=== PATIENT | female | born 1955 | race Caucasian/White ===

== ENCOUNTER 2017-01-21 11:35 | Outpatient (CLI) | payer BC | END 2017-01-21 11:36 | disposition home or self-care (01) | DX: E78.2 Mixed hyperlipidemia (principal); Z72.89 Other problems related to lifestyle; N95.1 Menopausal and female climacteric states ==

== ENCOUNTER 2017-05-19 09:40 | Outpatient (CLI) | payer BC ==
[2017-05-20 10:32] LABS: PROGESTERONE 12.8 ng/mL (())
[2017-05-23 08:01] LABS: FREE TESTOSTERONE 2.2 pg/mL (0.1-6.4)
== END 2017-05-19 09:41 | disposition home or self-care (01) ==
LOC: LAB.F 09:40
PROVIDERS: ATTEND Obstetrics & Gynecology Gynecology
DX: N95.1 Menopausal and female climacteric states (principal)
CPT/HCPCS: 36415; 82670; 84144; 84403

== ENCOUNTER 2017-10-05 09:42 | Outpatient (CLI) | payer BC ==
[2017-10-05 19:17] LABS: CHOL/HDL RATIO 4.3 (<4.4); CHOLESTEROL 240 mg/dL; HDL CHOLESTEROL 56 mg/dL; LDL/HDL RATIO 2.9 (<4.4); TRIGLYCERIDES 102 mg/dL; VLDL CHOLESTEROL 20 mg/dL
[2017-10-06 12:46] LABS: PROGESTERONE 13.6 ng/mL
[2017-10-10 19:26] LABS: TEST RESULT REPORT
== END 2017-10-05 09:43 | disposition home or self-care (01) ==
LOC: LAB.F 09:42
PROVIDERS: ATTEND Obstetrics & Gynecology Gynecology
DX: E78.2 Mixed hyperlipidemia (principal); N95.9 Unspecified menopausal and perimenopausal disorder
CPT/HCPCS: 36415; 80061; 81599; 82627; 82670; 84144; 84270; 84402; 84403

== ENCOUNTER 2018-04-07 07:50 | Outpatient (CLI) | payer BC ==
[2018-04-08 11:07] LABS: PROGESTERONE 31.3 ng/mL
== END 2018-04-07 07:51 | disposition home or self-care (01) ==
LOC: LAB.F 07:50
PROVIDERS: ATTEND Obstetrics & Gynecology Gynecology
DX: N95.9 Unspecified menopausal and perimenopausal disorder (principal)
CPT/HCPCS: 36415; 82627; 82670; 84144

== ENCOUNTER 2018-09-09 13:38 | Emergency (ER) | payer BC ==
--- NOTE | 2018-09-09 14:51 | ED Physician Documentation ---
History of Present Illness - Stated complaint Stated Complaint: HIGH BP - Chief complaint Chief Complaint: General - History obtained from History obtained from: Patient - History of Present Illness Timing: Last night Pain level max: 0 Pain level now: 0 Improved by: dizziness is better with rest Worsened by: worse with standing quickly - Additonal information Additional information: 63 yo F states she felt dizzy and off balance when she woke up last night to use the restroom. States she took her blood pressure and noted that it was high. Does not usually check her blood pressure. She states she had a massage this morning, her blood pressure decreased but then went up again. She states that she still feels slightly dizzy and off balance, though not as severe as before. She denies any chest pain, shortness of breath, visual changes. Review of Systems Constitutional: denies: Fever, Chills Eyes: denies: Decreased vision, Photophobia Ears: denies: Ear pain Nose: denies: Rhinorrhea / runny nose, Congestion Cardiac: denies: Chest pain / pressure, Palpitations Respiratory: denies: Dyspnea, Cough, Wheezing GI: denies: Abdominal Pain, Vomiting, Diarrhea : denies: Dysuria Skin: denies: Rash Musculoskeletal: denies: Neck pain, Back pain Neurologic: denies: Focal weakness, Numbness, Confused, Headache PD PAST MEDICAL HISTORY - Past Medical History Past Medical History: Yes Endocrine/Autoimmune: HyPOthyroidism - Present Medications Home Medications: Ambulatory Orders Medication Instructions Recorded Confirmed Cacium 09/09/18 Coq10 09/09/18 Estradiol [Estrogel] 50 gm TD 09/09/18 Levothyroxine [Synthroid] 112 mcg PO QDAC 09/09/18 09/09/18 Lisinopril 5 mg PO DAILY #30 tablet 09/09/18 Multi Thymus 09/09/18 Multivitamin [Multiple Vitamins] 1 each PO 09/09/18 Niacinamide [Endur-Amide] 500 mg PO 09/09/18 Pantothenic Acid 09/09/18 Prasterone (Dhea) [Dhea] 15 mg PO 09/09/18 Progesterone,Micronized 200 mg PO 09/09/18 [Progesterone] Vitamin K2 [Menauinone-7] 09/09/18 - Allergies Allergies/Adverse Reactions: Allergies Allergy/AdvReac Type Severity Reaction Status Date / Time No Known Drug Allergies Allergy Verified 09/09/18 13:47 PD ED PE NORMAL - Vitals Vital signs reviewed: Yes - General General: Alert and oriented X 3, No acute distress, Well developed/nourished - HEENT HEENT: PERRL, Ears normal, Moist mucous membranes, Pharynx benign - Neck Neck: Supple, no meningeal sign - Cardiac Cardiac: RRR, Strong equal pulses - Respiratory Respiratory: No respiratory distress, Clear bilaterally - Abdomen Abdomen: Soft, Non tender, Non distended - Derm Derm: Warm and dry - Extremities Extremities: No edema - Neuro Neuro: Alert and oriented X 3, 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 normal cerebellar tests.) Eye Opening: Spontaneous Motor: Obeys Commands Verbal: Oriented GCS Score: 15 - Psych Psych: Normal mood, Normal affect Results - Vitals Vitals: Vital Signs - 24 hr 09/09/18 09/09/18 13:42 15:05 Temperature 36.4 C L Heart Rate 58 L 65 Respiratory 18 16 Rate Blood Pressure 160/72 H 169/81 H O2 Saturation 100 99 Oxygen O2 Source Room air - EKG (time done) 1355 Rate: Rate (enter#) (57) Rhythm: NSR [place]: Normal Intervals: Normal [place] QRS: Normal Ischemia: Normal ST segments - Labs Labs: Laboratory Tests 09/09/18 09/09/18 15:00 15:00 WBC 7.1 RBC 4.30 Hgb 13.2 Hct 38.1 MCV 88.7 MCH 30.6 MCHC 34.5 RDW 13.9 Plt Count 256 MPV 7.4 L Neut # (Auto) 4.2 Lymph # (Auto) 2.0 [place] # (Auto) 0.5 Eos # (Auto) 0.3 Baso # (Auto) 0.0 Absolute Nucleated RBC 0.00 Nucleated RBC % 0.1 Sodium 137 Potassium 3.9 Chloride 104 Carbon Dioxide 28 Anion Gap 5.0 L BUN 12 Creatinine 0.8 Estimated GFR (MDRD) 72 L Glucose 88 Calcium 9.3 Total Bilirubin 0.8 AST 18 ALT 21 Alkaline Phosphatase 60 Total Protein 7.4 Albumin 4.1 Globulin 3.3 Albumin/Globulin Ratio 1.2 Lipase 23 PD MEDICAL DECISION MAKING - ED course Complexity details: reviewed results, re-evaluated patient, considered differe ntial, d/w patient ED course: Patient is a 63-year-old female with hypertension today. Also had an episode of what sounds like vertigo last night. This appears to be resolved now. No acute laboratory findings. EKG without acute ischemic findings. No chest pain, shortness of breath or palpitations. We will start her on a low-dose of lisinopril and have her follow-up with her doctor for further evaluation and care. Patient counseled regarding signs and symptoms for which I believe and urgent re-evaluation would be necessary. Patient with good understanding of and agreement to plan and is comfortable going home at this time This document was made in part using voice recognition software. While efforts are made to proofread this document, sound alike and grammatical errors may occur. Departure - Departure Disposition: 01 Home, Self Care Clinical Impression: Hypertension Qualifiers: Hypertension type: unspecified Qualified Code(s): I10 - Essential (primary) hypertension Condition: Good Instructions: ED Hypertension New Begin Tx Follow-Up: Daria Sanders PA-C [Primary Care Provider] - Within 1 week Prescriptions: Lisinopril 5 mg PO DAILY #30 tablet Comments: Your labs are normal today. Follow-up with your doctor for further care. Return if you worsen. Discharge Date/Time: 09/09/18 16:03 NIHSS - Time Time: 14:35 - Level of Consciousness Level of consciousness: (0) Alert, Keenly responsive LOC Questions: (0) Answers both Q's correct LOC Commands: (0) Performs both correctly - Gaze Best Gaze: (0) Normal - Visual Visual: (0) No loss - Facial Palsy Facial Palsy: (0) Normal, symmetrical movement - Motor Arms (both separate) Motor Arm (right): (0) No drift Motor Arm (left): (0) No drift - Motor Legs (both separate) Motor Leg (right): (0) No drift Motor Leg (left): (0) No drift - Limb Ataxia Limb Ataxia: (0) Absent - Sensory Sensory: (0) Normal - Best Language Best Language: (0) No aphasia - Dysarthria Dysarthria: (0) Normal - Extinction and Inattention (formally neg Extinction and inattention: (0) No abnormality - Total Score/Results Total Score/Result: 0
[2018-09-09 15:06] VITALS: BP 169/81
[2018-09-09 15:06] LABS: BASOPHILS % (AUTO) 0.5 %; EOSINOPHILS # (AUTO) 0.3 10^3/uL (0.0-0.7); EOSINOPHILS % (AUTO) 3.9 %; HGB - HEMOGLOBIN 13.2 g/dL (12.0-16.0); LYMPHOCYTES % (AUTO) 28.3 %; MEAN CORPUSCULAR HEMOGLOBIN 30.6 pg (27.0-31.0); MEAN CORPUSCULAR HGB CONC 34.5 g/dL (32.0-36.0); MEAN CORPUSCULAR VOLUME 88.7 fL (81.0-99.0); MEAN PLATELET VOLUME 7.4 fL (7.9-10.8); MONOCYTES # (AUTO) 0.5 10^3/uL (0.0-1.0); MONOCYTES % (AUTO) 7.2 %; NEUTROPHILS # (AUTO) 4.2 10^3/uL (1.5-6.6); NEUTROPHILS % (AUTO) 60.1 %; PLT - PLATELET COUNT 256 10^3/uL (130-450); RED CELL DISTRIBUTION WIDTH 13.9 % (12.0-15.0); WHITE BLOOD COUNT 7.1 x10^3/uL (4.8-10.8)
[2018-09-09 15:20] LABS: ALBUMIN 4.1 g/dL (3.2-5.5); ALBUMIN/GLOBULIN RATIO 1.2 (1.0-2.2); BILIRUBIN,TOTAL 0.8 mg/dL (0.2-1.0); CALCIUM 9.3 mg/dL (8.5-10.3); CREATININE 0.8 mg/dL (0.4-1.0); TOTAL PROTEIN 7.4 g/dL (6.7-8.2)
== END 2018-09-09 16:03 | disposition home or self-care (01) ==
LOC: ED 13:38
DX: I10 Essential (primary) hypertension (principal)
CPT/HCPCS: 36415; 80053; 83690; 85025; 93005; 99283

== ENCOUNTER 2018-10-21 10:22 | Outpatient (CLI) | payer BC ==
[2018-10-21 10:45] LABS: BILIRUBIN,URINE NEGATIVE (NEGATIVE); GLUCOSE, URINE (UA) NEGATIVE (NEGATIVE); KETONES,URINE (UA) NEGATIVE (NEGATIVE); LEUKOCYTE ESTERASE, URINE NEGATIVE (NEGATIVE); NITRITE,URINE NEGATIVE (NEGATIVE); OCCULT BLOOD,URINE NEGATIVE (NEGATIVE); PH,URINE 7.5 PH (5.0-7.5); PROTEIN,URINE NEGATIVE (NEGATIVE); UROBILINOGEN,URINE 0.2 (NORMAL) E.U./dL (NORMAL)
[2018-10-21 10:46] LABS: CLARITY,URINE CLEAR (CLEAR)
[2018-10-21 10:59] LABS: BASOPHILS % (AUTO) 0.3 %; EOSINOPHILS # (AUTO) 0.3 10^3/uL (0.0-0.7); EOSINOPHILS % (AUTO) 3.8 %; HGB - HEMOGLOBIN 13.7 g/dL (12.0-16.0); MEAN CORPUSCULAR HEMOGLOBIN 30.4 pg (27.0-31.0); MEAN CORPUSCULAR HGB CONC 34.3 g/dL (32.0-36.0); MEAN CORPUSCULAR VOLUME 88.6 fL (81.0-99.0); MEAN PLATELET VOLUME 7.5 fL (7.9-10.8); MONOCYTES # (AUTO) 0.4 10^3/uL (0.0-1.0); MONOCYTES % (AUTO) 6.2 %; NEUTROPHILS # (AUTO) 3.9 10^3/uL (1.5-6.6); NEUTROPHILS % (AUTO) 59.7 %; PLT - PLATELET COUNT 272 10^3/uL (130-450); RED BLOOD COUNT 4.51 10^6/uL (4.20-5.40); RED CELL DISTRIBUTION WIDTH 13.4 % (12.0-15.0); WHITE BLOOD COUNT 6.5 x10^3/uL (4.8-10.8)
[2018-10-21 11:33] LABS: ALBUMIN 4.3 g/dL (3.2-5.5); ALBUMIN/GLOBULIN RATIO 1.2 (1.0-2.2); ALKALINE PHOSPHATASE 57 IU/L (42-121); ALT ALANINE AMINOTRANSFERASE 18 IU/L (10-60); AST ASPARTATE AMINOTRANSFERASE 18 IU/L (10-42); BILIRUBIN,TOTAL 0.4 mg/dL (0.2-1.0); BUN - BLOOD UREA NITROGEN 16 mg/dL (6-20); CALCIUM 9.1 mg/dL (8.5-10.3); CARBON DIOXIDE - CO2 27 mmol/L (21-32); CHLORIDE 102 mmol/L (101-111); CHOL/HDL RATIO 5.2 (<4.4); CHOLESTEROL 265 mg/dL; CREATININE 0.7 mg/dL (0.4-1.0); CRP HIGH SENSITIVITY 4.2 mg/L; GFR - MDRD 85 (>89); GLUCOSE 98 mg/dL (70-100); HDL CHOLESTEROL 51 mg/dL; LDL CHOLESTEROL,CALCULATED 194 mg/dL; LDL/HDL RATIO 3.8 (<4.4); SODIUM 137 mmol/L (135-145); TOTAL PROTEIN 7.9 g/dL (6.7-8.2); VLDL CHOLESTEROL 20 mg/dL
[2018-10-21 19:49] LABS: FREE T4 (FREE THYROXINE) 1.12 ng/dL (0.58-1.64); THYROID STIMULATING HORMONE 0.1 uIU/mL (0.34-5.60)
[2018-10-22 07:58] LABS: HB2 TOTAL 14.2 g/dL; HEMOGLOBIN A1C 0.54 g/dL; HEMOGLOBIN A1C % 5.6 % (4.6-6.2)
== END 2018-10-21 10:23 | disposition home or self-care (01) ==
LOC: LAB 10:22
PROVIDERS: ATTEND Obstetrics & Gynecology Gynecology
DX: N95.9 Unspecified menopausal and perimenopausal disorder (principal)
CPT/HCPCS: 36415; 80053; 80061; 81003; 81599; 82306; 82627; 82670; 83036; 83721; 84144; 84402; 84403; 84439; 84443; 84481; 85025; 86141; 87086

== ENCOUNTER 2019-04-18 12:08 | Outpatient (CLI) | payer BC ==
[2019-04-18 13:42] LABS: THYROID STIMULATING HORMONE 0.12 uIU/mL (0.34-5.60)
[2019-04-18 13:44] LABS: FREE T4 (FREE THYROXINE) 0.9 ng/dL (0.58-1.64)
[2019-04-19 07:37] LABS: PROGESTERONE 3.2 ng/mL
== END 2019-04-18 12:09 | disposition home or self-care (01) ==
LOC: LAB 12:08
PROVIDERS: ATTEND Obstetrics & Gynecology Gynecology
DX: N95.1 Menopausal and female climacteric states (principal); E03.9 Hypothyroidism, unspecified
CPT/HCPCS: 36415; 81599; 82627; 82670; 84144; 84402; 84403; 84439; 84443; 84481

== ENCOUNTER 2019-09-03 10:01 | Emergency (ER) | payer BC ==
--- NOTE | 2019-09-03 10:57 | ED Physician Documentation ---
PD HPI FOCAL NEURO - Stated complaint Stated Complaint: VISION CHANGES - Chief complaint Chief Complaint: Neuro - History obtained from History obtained from: Patient - History of Present Illness Timing - onset: Today Timing - duration: Seconds (5) Timing - details: Abrupt onset, Now resolved Severity of deficit: Moderate Weakness: No: Face, Arm, Hand, Leg, Foot, Right, Left Numbness: No: Face, Arm, Hand, Leg, Foot, Right, Left Associated symptoms: No: Headache, Nausea / vomiting, Seizure, Syncope, Fall, Head injury, Chest pain, Neck pain, Back pain, Fever Contributing factors: negative: Anticoagulated, Vascular dz, Atrial fibrillation, Prosthetic heart valve Baseline status: positive: A&OX3, ambulatory, indep Similar symptoms before: Has not had sx before Recently seen: Not recently seen - Additional information Additional information: Previously well 64-year-old female with a history of hypertension was driving her car down to the [place] today when she experienced acute diplopia. She states the episode lasted about 5 seconds and she was able to pull off of the road and had resolution of symptoms when she opened her eyes. She has not had return of symptoms she has not had any other specific symptoms or any other lateralizing findings. Patient states that she has recently been on a car trip down to [place] and [facility] and she got back about 5 days ago she states that she did have a slight sinus congestion associated with that or a cold she feels that she is getting over that. She is not otherwise feeling ill when she feels that she is gotten adequate sleep denies any alcohol use denies any drug use or change to her medications. She is concerned about the possibility of a stroke. Review of Systems Constitutional: denies: Fever Eyes: reports: Other (transient diplopia). denies: Decreased vision Ears: denies: Ear pain Nose: reports: Congestion, Sinus pressure / pain Throat: denies: Oral lesions / sores, Sore throat Cardiac: denies: Chest pain / pressure, Palpitations Respiratory: denies: Dyspnea, Cough GI: denies: Nausea, Vomiting : denies: Dysuria, Frequency PD PAST MEDICAL HISTORY - Past Medical History Endocrine/Autoimmune: HyPOthyroidism - Past Surgical History Past Surgical History: Yes - Present Medications Home Medications: Ambulatory Orders Medication Instructions Recorded Confirmed Cacium 09/09/18 Coq10 09/09/18 Estradiol [Estrogel] 50 gm TD 09/09/18 Levothyroxine [Synthroid] 112 mcg PO QDAC 09/09/18 09/09/18 Lisinopril 5 mg PO DAILY #30 tablet 09/09/18 Multi Thymus 09/09/18 Multivitamin [Multiple Vitamins] 1 each PO 09/09/18 Niacinamide [Endur-Amide] 500 mg PO 09/09/18 Pantothenic Acid 09/09/18 Prasterone (Dhea) [Dhea] 15 mg PO 09/09/18 Progesterone, Micronized 200 mg PO 09/09/18 [Progesterone] Vitamin K2 [Menauinone-7] 09/09/18 - Allergies Allergies/Adverse Reactions: Allergies Allergy/AdvReac Type Severity Reaction Status Date / Time No Known Drug Allergies Allergy Verified 09/03/19 10:06 - Social History Does the pt smoke?: No Smoking Status: Never smoker Does the pt drink ETOH?: No Does the pt have substance abuse?: No - Immunizations Immunizations are current?: Yes PD ED PE NORMAL - Vitals Vital signs reviewed: Yes (hypertensive mild ) - General General: Alert and oriented X 3, No acute distress, Well developed/nourished - HEENT HEENT: Atraumatic, PERRL, EOMI, Ears normal, Moist mucous membranes, Pharynx benign, Dentition benign - Neck Neck: Supple, no meningeal sign, No bony TTP - Cardiac Cardiac: RRR, No murmur - Respiratory Respiratory: No respiratory distress, Clear bilaterally - Abdomen Abdomen: Soft, Non tender - Back Back: No CVA TTP, No spinal TTP - Derm Derm: Normal color, Warm and dry, No rash NIHSS - Time Time: 10:50 - Level of Consciousness Level of consciousness: (0) Alert, Keenly responsive LOC Questions: (0) Answers both Q's correct LOC Commands: (0) Performs both correctly - Gaze Best Gaze: (0) Normal - Visual Visual: (0) No loss - Facial Palsy Facial Palsy: (0) Normal, symmetrical movement - Motor Arms (both separate) Motor Arm (right): (0) No drift Motor Arm (left): (0) No drift - Motor Legs (both separate) Motor Leg (right): (0) No drift Motor Leg (left): (0) No drift - Limb Ataxia Limb Ataxia: (0) Absent - Sensory Sensory: (0) Normal - Best Language Best Language: (0) No aphasia - Dysarthria Dysarthria: (0) Normal - Extinction and Inattention (formally neg Extinction and inattention: (0) No abnormality - Total Score/Results Total Score/Result: 0 Results - Vitals Vitals: Vital Signs - 24 hr 09/03/19 09/03/19 09/03/19 10:05 11:14 12:40 Temperature 36.7 C Heart Rate 61 58 L 59 L Respiratory 20 18 18 Rate Blood Pressure 148/58 H 145/73 H 142/84 H O2 Saturation 100 99 98 Oxygen O2 Source Room air - EKG (time done) 1107 Rate: Rate (enter#) (54) Rhythm: NSR QRS: Low voltage Compare to prior EKG: Unchanged from prior EKG (SPT 09-09-2018) Computer interpretation: Agree with computer - Labs Labs: Laboratory Tests 09/03/19 09/03/19 09/03/19 11:03 11:11 11:11 WBC 6.4 RBC 4.59 Hgb 13.4 Hct 41.9 MCV 91.3 MCH 29.2 MCHC 32.0 RDW 13.2 Plt Count 267 MPV 9.3 Neut # (Auto) 4.1 Lymph # (Auto) 1.8 [place] # (Auto) 0.4 Eos # (Auto) 0.1 Baso # (Auto) 0.0 Absolute Nucleated RBC 0.00 Nucleated RBC % 0.0 Sodium 139 Potassium 3.7 Chloride 102 Carbon Dioxide 28 Anion Gap 9.0 BUN 12 Creatinine 0.8 Estimated GFR (MDRD) 72 L Glucose 97 Calcium 9.3 Total Bilirubin 0.6 AST 20 ALT 25 Alkaline Phosphatase 58 Total Protein 7.7 Albumin 4.3 Globulin 3.4 Albumin/Globulin Ratio 1.3 Lipase 30 Urine Color LT. YELLOW Urine Clarity CLEAR Urine pH 7.5 Ur Specific [place] 1.010 Urine Protein NEGATIVE Urine Glucose (UA) NEGATIVE Urine Ketones NEGATIVE Urine Occult Blood NEGATIVE Urine Nitrite NEGATIVE Urine Bilirubin NEGATIVE Urine Urobilinogen 0.2 (NORMAL) Ur Leukocyte Esterase NEGATIVE Ur Microscopic Review NOT INDICATED Urine Culture Comments NOT INDICATED - Rads (name of study) Head CT Radiology: Prelim report reviewed (Impression: Normal head CT.), EMP read indepedently, See rad report Procedures - IVC sono (time) 1045 Bedside IVC sono: IVC measures (cm) (1.52), Euvolemia PD MEDICAL DECISION MAKING - ED course Complexity details: reviewed old records, reviewed results, re-evaluated patient, considered differential, d/w patient ED course: transient diplopia 5 seconds. No recurrence. I sought to find a history of exhaustion, but the patient really did not feel this was the case and a work up for TIA was entirely normal. I have asked the patient to follow up with her primary. Departure - Departure Disposition: 01 Home, Self Care Clinical Impression: Diplopia Condition: Stable Instructions: ED Double Vision Follow-Up: Aristeo Velasco MD [Provider Admit Priv/Credential] - Nav Morejon MD [Provider Admit Priv/Credential] - Discharge Date/Time: 09/03/19 12:42
[2019-09-03 11:17] LABS: BASOPHILS % (AUTO) 0.2 %; EOSINOPHILS # (AUTO) 0.1 10^3/uL (0.0-0.7); EOSINOPHILS % (AUTO) 2.2 %; HGB - HEMOGLOBIN 13.4 g/dL (12.0-16.0); LYMPHOCYTES # (AUTO) 1.8 10^3/uL (1.5-3.5); LYMPHOCYTES % (AUTO) 27.6 %; MEAN CORPUSCULAR HEMOGLOBIN 29.2 pg (27.0-31.0); MEAN CORPUSCULAR VOLUME 91.3 fL (81.0-99.0); MEAN PLATELET VOLUME 9.3 fL (7.9-10.8); MONOCYTES # (AUTO) 0.4 10^3/uL (0.0-1.0); MONOCYTES % (AUTO) 5.8 %; NEUTROPHILS # (AUTO) 4.1 10^3/uL (1.5-6.6); NEUTROPHILS % (AUTO) 63.9 %; PLT - PLATELET COUNT 267 10^3/uL (130-450); RED BLOOD COUNT 4.59 10^6/uL (4.20-5.40); RED CELL DISTRIBUTION WIDTH 13.2 % (12.0-15.0); WHITE BLOOD COUNT 6.4 x10^3/uL (4.8-10.8)
[2019-09-03 11:28] LABS: BILIRUBIN,URINE NEGATIVE (NEGATIVE); GLUCOSE, URINE (UA) NEGATIVE (NEGATIVE); KETONES,URINE (UA) NEGATIVE (NEGATIVE); LEUKOCYTE ESTERASE, URINE NEGATIVE (NEGATIVE); NITRITE,URINE NEGATIVE (NEGATIVE); OCCULT BLOOD,URINE NEGATIVE (NEGATIVE); PH,URINE 7.5 PH (5.0-7.5); PROTEIN,URINE NEGATIVE (NEGATIVE); UROBILINOGEN,URINE 0.2 (NORMAL) E.U./dL (NORMAL)
[2019-09-03 11:29] LABS: ALBUMIN 4.3 g/dL (3.2-5.5); ALBUMIN/GLOBULIN RATIO 1.3 (1.0-2.2); BILIRUBIN,TOTAL 0.6 mg/dL (0.2-1.0); CALCIUM 9.3 mg/dL (8.5-10.3); CREATININE 0.8 mg/dL (0.4-1.0); TOTAL PROTEIN 7.7 g/dL (6.7-8.2)
[2019-09-03 11:29] LABS: CLARITY,URINE CLEAR (CLEAR)
--- NOTE | 2019-09-03 12:01 | CT Report ---
Reason: transient double vision Procedure Date: 09/03/2019 Accession Number: [id number] / [id number] Procedure: CT - HEAD WO CPT Code: Final Report FULL RESULT: EXAM: CT HEAD EXAM DATE: 09/03/2019 11:36 AM. CLINICAL HISTORY: Transient double vision. COMPARISON: None. TECHNIQUE: Multiaxial CT images were obtained from the foramen magnum to the vertex. Reformats: Sagittal and coronal. IV contrast: None. In accordance with CT protocol optimization, one or more of the following dose reduction techniques were utilized for this exam: automated exposure control, adjustment of mA and/or KV based on patient size, or use of iterative reconstructive technique. FINDINGS: Parenchyma: No intraparenchymal hemorrhage. No evidence of mass, midline shift, or CT findings of infarction. Cornejo-white differentiation is distinct. Extraaxial Spaces: Normal for age. No subdural or epidural collections identified. Cavum septum pellucidum and cavum vergae. Ventricles: Normal in size and position. Sinuses and Orbits: Imaged paranasal sinuses, orbits, and mastoids show no significant abnormality. Bones: No evidence of fracture or calvarial defect. Other: None. IMPRESSION: Normal head CT. RADIA
[2019-09-03 12:41] VITALS: BP 142/84
== END 2019-09-03 12:42 | disposition home or self-care (01) ==
LOC: ED 10:01
DX: H53.2 Diplopia (principal); E03.9 Hypothyroidism, unspecified
CPT/HCPCS: 36415; 70450; 80053; 81001; 81003; 83690; 85025; 87086; 93005; 99284

== ENCOUNTER 2019-09-27 11:16 | Outpatient (CLI) | payer BC | END 2019-09-27 11:17 | disposition home or self-care (01) | LOC: LAB.S 11:16 | PROVIDERS: ATTEND Obstetrics & Gynecology Gynecology | DX: Z00.00 Encounter for general adult medical examination without abnormal findings (principal); E03.8 Other specified hypothyroidism; N95.1 Menopausal and female climacteric states | CPT/HCPCS: 36415; 84439; 84443; 84481 ==

== ENCOUNTER 2019-09-28 08:31 | Outpatient (CLI) | payer BC ==
[2019-09-28 17:13] LABS: BASOPHILS % (AUTO) 0.5 %; EOSINOPHILS # (AUTO) 0.2 10^3/uL (0.0-0.7); HGB - HEMOGLOBIN 13.6 g/dL (12.0-16.0); LYMPHOCYTES % (AUTO) 30.4 %; MEAN CORPUSCULAR HGB CONC 32.8 g/dL (32.0-36.0); MEAN CORPUSCULAR VOLUME 91.4 fL (81.0-99.0); MEAN PLATELET VOLUME 9.8 fL (7.9-10.8); MONOCYTES # (AUTO) 0.4 10^3/uL (0.0-1.0); MONOCYTES % (AUTO) 6.3 %; NEUTROPHILS % (AUTO) 59.3 %; PLT - PLATELET COUNT 273 10^3/uL (130-450); RED BLOOD COUNT 4.54 10^6/uL (4.20-5.40); RED CELL DISTRIBUTION WIDTH 13.3 % (12.0-15.0); WHITE BLOOD COUNT 6.7 x10^3/uL (4.8-10.8)
[2019-09-28 17:33] LABS: BILIRUBIN,URINE NEGATIVE (NEGATIVE); GLUCOSE, URINE (UA) NEGATIVE (NEGATIVE); KETONES,URINE (UA) NEGATIVE (NEGATIVE); LEUKOCYTE ESTERASE, URINE NEGATIVE (NEGATIVE); NITRITE,URINE NEGATIVE (NEGATIVE); OCCULT BLOOD,URINE NEGATIVE (NEGATIVE); PROTEIN,URINE NEGATIVE (NEGATIVE); UROBILINOGEN,URINE 0.2 (NORMAL) E.U./dL (NORMAL)
[2019-09-28 17:37] LABS: HB2 TOTAL 13.5 g/dL; HEMOGLOBIN A1C 0.53 g/dL; HEMOGLOBIN A1C % 5.7 % (4.6-6.2)
[2019-09-28 17:40] LABS: ALBUMIN 4.4 g/dL (3.2-5.5); ALBUMIN/GLOBULIN RATIO 1.4 (1.0-2.2); ALKALINE PHOSPHATASE 57 IU/L (42-121); ALT ALANINE AMINOTRANSFERASE 25 IU/L (10-60); AST ASPARTATE AMINOTRANSFERASE 22 IU/L (10-42); BILIRUBIN,TOTAL 0.2 mg/dL (0.2-1.0); BUN - BLOOD UREA NITROGEN 15 mg/dL (6-20); CALCIUM 9.2 mg/dL (8.5-10.3); CARBON DIOXIDE - CO2 27 mmol/L (21-32); CHLORIDE 103 mmol/L (101-111); CHOL/HDL RATIO 4.2 (<4.4); CHOLESTEROL 267 mg/dL; CREATININE 0.8 mg/dL (0.4-1.0); GFR - MDRD 72 (>89); GLUCOSE 108 mg/dL (70-100); HDL CHOLESTEROL 64 mg/dL; LDL CHOLESTEROL,CALCULATED 182 mg/dL; LDL/HDL RATIO 2.8 (<4.4); SODIUM 138 mmol/L (135-145); TOTAL PROTEIN 7.6 g/dL (6.7-8.2); VLDL CHOLESTEROL 21 mg/dL
[2019-09-28 17:42] LABS: CLARITY,URINE CLEAR (CLEAR); RBC,URINE None Seen /HPF (0-5); SQUAMOUS EPITHELIAL CELL,UR RARE Squamous (<= Few)
[2019-09-28 17:43] LABS: BACTERIA,URINE None Seen /HPF (None Seen)
[2019-09-28 17:48] LABS: THYROID STIMULATING HORMONE 0.1 uIU/mL (0.34-5.60)
[2019-09-28 17:50] LABS: FREE T4 (FREE THYROXINE) 0.98 ng/dL (0.58-1.64)
[2019-09-28 17:51] LABS: CRP - C-REACTIVE PROTEIN < 1.0 mg/dL (0-1.0)
[2019-09-29 06:16] LABS: PROGESTERONE 4.5 ng/mL
== END 2019-09-28 08:32 | disposition home or self-care (01) ==
LOC: LAB.S 08:31
PROVIDERS: ATTEND Obstetrics & Gynecology Gynecology
DX: Z00.00 Encounter for general adult medical examination without abnormal findings (principal); E03.8 Other specified hypothyroidism; N95.1 Menopausal and female climacteric states
CPT/HCPCS: 36415; 80053; 80061; 81001; 81599; 82627; 82670; 83036; 83721; 84144; 84403; 84439; 84443; 84481; 85025; 86140; 87086

== ENCOUNTER 2020-03-01 18:20 | Outpatient (CLI) | payer BC | END 2020-03-01 18:21 | disposition home or self-care (01) | LOC: COV 18:20 | PROVIDERS: ATTEND Family Medicine | DX: R50.9 Fever, unspecified (principal); R53.83 Other fatigue | CPT/HCPCS: 81599 ==

== ENCOUNTER 2020-09-28 08:31 | Outpatient (CLI) | payer MEDICARE, BC ==
[2020-09-28 09:22] LABS: BILIRUBIN,URINE NEGATIVE (NEGATIVE); GLUCOSE, URINE (UA) NEGATIVE (NEGATIVE); KETONES,URINE (UA) NEGATIVE (NEGATIVE); LEUKOCYTE ESTERASE, URINE NEGATIVE (NEGATIVE); NITRITE,URINE NEGATIVE (NEGATIVE); OCCULT BLOOD,URINE NEGATIVE (NEGATIVE); PH,URINE 7.5 PH (5.0-7.5); PROTEIN,URINE NEGATIVE (NEGATIVE); UROBILINOGEN,URINE 0.2 (NORMAL) E.U./dL (NORMAL)
[2020-09-28 09:26] LABS: BASOPHILS % (AUTO) 0.3 %; EOSINOPHILS # (AUTO) 0.1 10^3/uL (0.0-0.7); EOSINOPHILS % (AUTO) 2.2 %; HGB - HEMOGLOBIN 13.2 g/dL (12.0-16.0); LYMPHOCYTES % (AUTO) 34.3 %; MEAN CORPUSCULAR HEMOGLOBIN 30.4 pg (27.0-31.0); MEAN CORPUSCULAR HGB CONC 33.3 g/dL (32.0-36.0); MEAN CORPUSCULAR VOLUME 91.2 fL (81.0-99.0); MEAN PLATELET VOLUME 9.1 fL (7.9-10.8); MONOCYTES # (AUTO) 0.5 10^3/uL (0.0-1.0); MONOCYTES % (AUTO) 8.1 %; NEUTROPHILS # (AUTO) 3.3 10^3/uL (1.5-6.6); NEUTROPHILS % (AUTO) 54.8 %; PLT - PLATELET COUNT 249 10^3/uL (130-450); RED BLOOD COUNT 4.34 10^6/uL (4.20-5.40); RED CELL DISTRIBUTION WIDTH 13.3 % (12.0-15.0)
[2020-09-28 09:40] LABS: CLARITY,URINE CLEAR (CLEAR)
[2020-09-28 09:44] LABS: ALBUMIN 4.1 g/dL (3.2-5.5); ALBUMIN/GLOBULIN RATIO 1.2 (1.0-2.2); ALKALINE PHOSPHATASE 56 IU/L (42-121); ALT ALANINE AMINOTRANSFERASE 25 IU/L (10-60); AST ASPARTATE AMINOTRANSFERASE 23 IU/L (10-42); BILIRUBIN,TOTAL 0.6 mg/dL (0.2-1.0); BUN - BLOOD UREA NITROGEN 12 mg/dL (6-20); CALCIUM 9.1 mg/dL (8.5-10.3); CARBON DIOXIDE - CO2 28 mmol/L (21-32); CHLORIDE 103 mmol/L (101-111); CHOL/HDL RATIO 4.1 (<4.4); CHOLESTEROL 272 mg/dL; CREATININE 0.8 mg/dL (0.4-1.0); CRP HIGH SENSITIVITY 6.1 mg/L; GLUCOSE 91 mg/dL (70-100); HDL CHOLESTEROL 66 mg/dL; LDL CHOLESTEROL,CALCULATED 183 mg/dL; LDL/HDL RATIO 2.8 (<4.4); SODIUM 137 mmol/L (135-145); TOTAL PROTEIN 7.4 g/dL (6.7-8.2); VLDL CHOLESTEROL 23 mg/dL
[2020-09-28 09:46] LABS: RBC,URINE None Seen /HPF (0-5); SQUAMOUS EPITHELIAL CELL,UR NONE SEEN (<= Few)
[2020-09-28 09:47] LABS: BACTERIA,URINE None Seen /HPF (None Seen)
[2020-09-28 09:54] LABS: THYROID STIMULATING HORMONE 0.23 uIU/mL (0.34-5.60)
[2020-09-28 09:56] LABS: FREE T3 3.33 pg/mL (2.5-3.9)
[2020-09-28 09:58] LABS: FREE T4 (FREE THYROXINE) 0.86 ng/dL (0.58-1.64)
[2020-09-28 12:48] LABS: HEMOGLOBIN A1c% 5.6 % (4.27-6.07)
[2020-09-29 06:16] LABS: PROGESTERONE 7.5 ng/mL
== END 2020-09-28 08:32 | disposition home or self-care (01) ==
LOC: LAB 08:31
PROVIDERS: ATTEND Obstetrics & Gynecology Gynecology
DX: Z00.00 Encounter for general adult medical examination without abnormal findings (principal); N95.1 Menopausal and female climacteric states; E78.2 Mixed hyperlipidemia; M85.80 Other specified disorders of bone density and structure, unspecified site
CPT/HCPCS: 36415; 80053; 80061; 81001; 82306; 82627; 82670; 83036; 83721; 84144; 84270; 84402; 84403; 84439; 84443; 84481; 85025; 86141; 87086

== ENCOUNTER 2021-04-05 09:08 | Outpatient (CLI) | payer MEDICARE, BC ==
[2021-04-05 10:05] LABS: THYROID STIMULATING HORMONE 0.12 uIU/mL (0.34-5.60)
[2021-04-05 10:06] LABS: FREE T3 3.38 pg/mL (2.5-3.9)
[2021-04-05 10:07] LABS: FREE T4 (FREE THYROXINE) 1.06 ng/dL (0.58-1.64)
[2021-04-06 05:36] LABS: PROGESTERONE 13.4 ng/mL
== END 2021-04-05 09:09 | disposition home or self-care (01) ==
LOC: LAB 09:08
PROVIDERS: ATTEND Obstetrics & Gynecology Gynecology
DX: N95.1 Menopausal and female climacteric states (principal); E03.8 Other specified hypothyroidism
CPT/HCPCS: 36415; 81599; 82627; 82670; 84144; 84402; 84403; 84439; 84443; 84481

== ENCOUNTER 2023-07-07 10:59 | Outpatient (CLI) | payer MEDICARE, BC ==
[2023-07-08 06:10] LABS: ESTRADIOL <5.0 pg/mL (.); PROGESTERONE 0.6 ng/mL (.)
[2023-07-08 19:07] LABS: FREE TESTOSTERONE(DIRECT) 6.6 pg/mL (0.0-4.2); TESTOSTERONE 18 ng/dL (3-67)
== END 2023-07-07 11:00 | disposition home or self-care (01) ==
LOC: LAB 10:59
PROVIDERS: ATTEND Obstetrics & Gynecology Gynecology
DX: N95.1 Menopausal and female climacteric states (principal); E03.8 Other specified hypothyroidism
CPT/HCPCS: 36415; 82627; 82670; 84144; 84402; 84403; 84439; 84443; 84481